=== PATIENT | female | born 1975 | race Caucasian/White ===

== ENCOUNTER 2021-06-17 14:55 | Emergency (ER) | payer MEDICARE, OTHER | END 2021-06-17 17:33 | disposition home or self-care (01) | LOC: ER1 14:55 | DX: R51.9 Headache, unspecified (principal); Z20.822 Contact with and (suspected) exposure to COVID-19; J44.9 Chronic obstructive pulmonary disease, unspecified; I10 Essential (primary) hypertension; F17.210 Nicotine dependence, cigarettes, uncomplicated | CPT/HCPCS: 99283; U0002 ==

== ENCOUNTER 2022-01-29 14:06 | Emergency (ER) | payer MEDICARE, OTHER ==
[2022-01-29 15:06] LABS: HEMOGLOBIN 15.2 gm/dl (12.3-15.3); RED BLOOD COUNT 4.85 M/UL (4.00-5.10); WHITE BLOOD COUNT 9.4 K/UL (4.5-11.0)
[2022-01-29] MEDS ORDERED: OMNICEF 300 MG300 MG PO (18:33)
== END 2022-01-29 19:20 | disposition home or self-care (01) ==
LOC: ER1 14:06
PROVIDERS: Emergency Medicine
DX: J44.0 Chronic obstructive pulmonary disease with (acute) lower respiratory infection (principal); J44.1 Chronic obstructive pulmonary disease with (acute) exacerbation; J18.9 Pneumonia, unspecified organism; Z20.822 Contact with and (suspected) exposure to COVID-19; F17.200 Nicotine dependence, unspecified, uncomplicated
CPT/HCPCS: 0240U; 71045; 80053; 82550; 82553; 82962; 84484; 85025; 93005; 96374; 96375; 99285; J0696; J1100; J7030

== ENCOUNTER 2022-03-01 09:16 | Emergency (ER) | payer MEDICARE, OTHER ==
[~2022-03-01 09:16] MED LIST: OMNICEF 300 MG300 MG PO
[2022-03-01 11:01] LABS: HEMOGLOBIN 15.4 gm/dl (12.3-15.3); RED BLOOD COUNT 4.99 M/UL (4.00-5.10); WHITE BLOOD COUNT 8.1 K/UL (4.5-11.0)
[2022-03-01] MEDS ORDERED: MEDROL DOSEPAK 24 MG PO (12:19)
[2022-03-01] MEDS ORDERED: WIXELA 250-501 EACH INH (12:19)
== END 2022-03-01 13:30 | disposition home or self-care (01) ==
LOC: ER1 09:16
PROVIDERS: Physician Assistant
DX: J44.1 Chronic obstructive pulmonary disease with (acute) exacerbation (principal); I10 Essential (primary) hypertension; F17.210 Nicotine dependence, cigarettes, uncomplicated; Z20.822 Contact with and (suspected) exposure to COVID-19
CPT/HCPCS: 0240U; 71045; 80053; 82550; 82553; 83880; 84484; 85025; 93005; 94664; 94760; 96374; 99285; J1100

== ENCOUNTER → 2022-03-20 | Outpatient (CLI) | payer MEDICARE, OTHER ==
[~2022-03-20] MED LIST changes: +MEDROL DOSEPAK 24 MG PO; +WIXELA 250-501 EACH INH
== END ==
LOC: LAB 09:50
PROVIDERS: Internal Medicine Nephrology
DX: E55.9 Vitamin D deficiency, unspecified (principal); N17.9 Acute kidney failure, unspecified; E78.5 Hyperlipidemia, unspecified
CPT/HCPCS: 36415; 80053; 82550; 82570; 83970; 84100; 84156; 89050

== ENCOUNTER → 2022-03-20 | Outpatient (CLI) | payer MEDICARE, OTHER | LOC: EXRD 09:20 | DX: N17.9 Acute kidney failure, unspecified (principal) | CPT/HCPCS: 76775 ==

== ENCOUNTER → 2022-05-22 | Outpatient (CLI) | payer MEDICARE, OTHER | LOC: LAB 08:37 | PROVIDERS: Internal Medicine Nephrology | DX: N17.9 Acute kidney failure, unspecified (principal); E55.9 Vitamin D deficiency, unspecified | CPT/HCPCS: 36415; 80053; 82570; 84156 ==

== ENCOUNTER → 2022-05-27 | Outpatient (CLI) | payer MEDICARE, OTHER | LOC: US 08:30 | DX: N26.1 Atrophy of kidney (terminal) (principal) | CPT/HCPCS: 93975 ==